=== PATIENT | male | born 1985 | race Caucasian/White ===

== ENCOUNTER 2021-06-24 11:26 | Outpatient (CLI) | payer OTHER ==
[2021-06-25 00:49] LABS: SARS-CoV-2 PCR by NAA Not Detected (NotDetected)
== END 2021-06-24 11:27 | disposition home or self-care (01) ==
LOC: CSHLAB 11:26
PROVIDERS: ATTEND Internal Medicine Gastroenterology
DX: Z20.822 Contact with and (suspected) exposure to COVID-19 (principal)
CPT/HCPCS: U0003; U0005

== ENCOUNTER 2021-06-27 08:29 | Day surgery (SDC) | payer OTHER ==
[2021-06-25 15:06] VITALS: BMI 29.9
[2021-06-27] MEDS ORDERED: PROPOFOL 40 ML ONE (09:02)
[2021-06-27] MEDS ORDERED: Lidocaine 2% MPF 10 ML AMP (For Epidural Use) ONE (09:02)
[2021-06-27] MEDS ORDERED: Lidocaine 1% MPF 2 ML VIAL ONE (09:31)
[2021-06-27] MEDS ORDERED: Fentanyl 100 MCG/2 ML VIAL ONE (10:20)
== END 2021-06-27 11:22 | disposition home or self-care (01) ==
LOC: CSHSDC 08:29
PROVIDERS: ATTEND Internal Medicine Gastroenterology
PROC: 0DB68ZZ Excision of Stomach, Via Natural or Artificial Opening Endoscopic (ICD-10-PCS; principal; 2021-06-27)
DX: K21.00 Gastro-esophageal reflux disease with esophagitis, without bleeding (principal); K29.70 Gastritis, unspecified, without bleeding; K31.7 Polyp of stomach and duodenum
CPT/HCPCS: 88305; 88342; J2704; J3010